=== PATIENT | male | born 1990 | race Caucasian/White ===

== ENCOUNTER 2018-05-21 12:18 | Outpatient (CLI) | payer OTHER | END 2018-05-21 12:19 | disposition home or self-care (01) | LOC: C.PAT 12:18 | DX: N20.0 Calculus of kidney (principal) ==

== ENCOUNTER 2018-05-26 11:34 | Day surgery (SDC) | payer OTHER ==
[2018-05-21 12:47] VITALS: BMI 28.8
[2018-05-26] MEDS ORDERED: Ciprofloxacin 400mg/200ml D5W 400 MG/200 ML BAG IVPB ONE (13:38)
[2018-05-26] MEDS ORDERED: Lidocaine 2% Jelly (Uro-Jet) ONE (13:39)
[2018-05-26] MEDS ORDERED: Gentamicin 80 mg in 0.9% NS 80 MG/100 ML BAG IVPB ONE ×2 (13:39→13:54)
[2018-05-26] MEDS ORDERED: Iohexol 240 (50 ml) ONE (13:44)
[2018-05-26] MEDS ORDERED: Propofol 10 mg/ml Inj (20 ML) ONE ×2 (13:46→13:59)
[2018-05-26] MEDS ORDERED: Lactated Ringer's 1,000 ML IV SCH (14:15)
--- NOTE | 2018-05-26 14:18 | PCM.SURG1 ---
Surgeon's Initial Post Op Note - Surgeon's Notes Surgeon: Bam Supervisor Agricultural Education: Julianne Type of Anesthesia: General LMA Anesthesia Administered By: Staff Pre-Operative Diagnosis: Right Hydronephrosis Operative Findings: Right ureteral calculi @ level of lower ureter and mid ureter junction Post-Operative Diagnosis: Durand secondery to ureteral calculi Operation Performed: Cysto and insertion of jj stent Specimen/Specimens Removed: NA Estimated Blood Loss: EBL {In ML}: 0 Blood Products Given: N/A Drains Used: No Drains Post-Op Condition: Good Date of Surgery/Procedure: 05/26/18 Time of Surgery/Procedure: 14:18
[2018-05-26 14:29] VITALS: TEMP 97.1
[2018-05-26 15:29] VITALS: BP 123/71; PULSE 69; RESP 12; O2SAT 98
--- NOTE | 2018-05-26 19:12 | RAD ---
Date of service: 05/26/2018 PROCEDURE: Intraoperative Fluoroscopy. HISTORY: RT.URETERAL STONE FINDINGS: Fluoroscopic assistance was provided. Fluoroscopy time = 45.6 sec. Radiation dose = 0.46471 mGy . Please refer to the operative report from VERONICA Rosen.
--- NOTE | 2018-05-27 10:41 | RAD ---
Date of service: 05/26/2018 HISTORY: RT URETERAL STONE COMPARISON: None available. FINDINGS: BOWEL: Minimal stool is present in the splenic and ascending colon. No bowel obstruction suggested BONES: Normal. OTHER FINDINGS: A approximately 2 to 3 mm hyperdensity projects over the right retroperitoneal fat approximately 3 cm lateral to the superior SI joint line and this is just inferior to the right L4 transverse process. This hyperdensity is too far lateral to be considered for atypical right ureteral calculus. A 1 mm calcification projects not only over the stool of the hepatic flexure but also the inferior pole of the right kidney a right renal calculus here is a consideration. There also may be a 1 to 2 mm left upper renal pole calcification or finding relating to stool contents. IMPRESSION: No typical right ureteral calculi appreciated. Tiny hyperdensities possible calcifications are as detailed above. Correlation recommended with any outside CT abdomen exams demonstrating the presence of position of any known right sided urolithiasis.
--- NOTE | 2018-05-27 19:51 | OP ---
PROCEDURE DATE: 05/26/2018 PREOPERATIVE DIAGNOSIS: Right renal colic and ureteral calculi. POSTOPERATIVE DIAGNOSIS: Right hydronephrosis secondary to ureteral calculi at the junction of the mid and lower third of the ureter causing hydronephrosis. DESCRIPTION OF PROCEDURE: The patient was asked to sign a detailed informed consent, a full explanation of all risks and limitations of this procedure were given to the patient, he agreed and signed the consent. He was brought into the room and a time-out was taken according to the rules and regulations of [facility]. He received prophylactic antibiotics and was cystoscoped with a #21 Storz panendoscope. The right ureteral orifice was cannulized with a 0.038 guidewire after a side check was done and the guidewire was passed up into the renal pelvis. There appeared to be a small stone in the lower ureter. It was likely to insert a double J stent, the level of the stone appears to be at the iliac crossing. The stone was bypassed by passing a 6-[place] variable length stent. The patient tolerated this well. He will be scheduled for ESWL at the next available day. He was advised postoperatively all the findings and need for further therapy and stent removal. Santosh Kuhn MD
== END 2018-05-26 16:35 | disposition home or self-care (01) ==
LOC: C.SDS 11:34
PROVIDERS: ATTEND Urology
DX: N20.0 Calculus of kidney (principal); N13.2 Hydronephrosis with renal and ureteral calculous obstruction
CPT/HCPCS: 52332; 74018; C1725; C1769; J0744; J1580

== ENCOUNTER 2018-06-16 11:29 | Day surgery (SDC) | payer OTHER ==
[2018-05-21 12:47] VITALS: BMI 28.8
[2018-06-16] MEDS ORDERED: Gentamicin 160 MG in Sodium Chloride 0.9% 100 ML IVPB ONE (12:21)
[2018-06-16 12:37] VITALS: O2SAT 98
[2018-06-16] MEDS ORDERED: Lidocaine 2% Jelly (Uro-Jet) ONE (14:47)
[2018-06-16] MEDS ORDERED: Ciprofloxacin 400mg/200ml D5W 400 MG/200 ML BAG IVPB ONE (14:47)
[2018-06-16] MEDS ORDERED: Propofol 10 mg/ml Inj (20 ML) ONE (14:48)
[2018-06-16] MEDS ORDERED: Midazolam 2 MG/2 ML VIAL ONE (14:48)
--- NOTE | 2018-06-16 15:16 | PCM.SURG1 ---
Surgeon's Initial Post Op Note - Surgeon's Notes Surgeon: Bam Sfdc Developer: ARELY Type of Anesthesia: General LMA Anesthesia Administered By: staff Pre-Operative Diagnosis: Retained stent Operative Findings: stent/no stones Post-Operative Diagnosis: same Operation Performed: Cysto removal of stent Specimen/Specimens Removed: stent Estimated Blood Loss: EBL {In ML}: 0 Blood Products Given: N/A Post-Op Condition: Good Date of Surgery/Procedure: 06/16/18 Time of Surgery/Procedure: 15:15
[2018-06-16 16:19] VITALS: TEMP 97
[2018-06-16 17:48] VITALS: BP 115/58; PULSE 72; RESP 16
--- NOTE | 2018-06-17 02:00 | OP ---
PROCEDURE DATE: 06/16/2018 PREOPERATIVE DIAGNOSIS: Indwelling ureteral stent. POSTOPERATIVE DIAGNOSIS: Indwelling ureteral stent. PROCEDURE: Cystoscopy and removal of stent. FINDINGS: Double-J stent with good position with no evidence of stones and the procedure is as follows. The patient was asked to sign a detailed informed consent after full explanation of the risk and complications of this procedure. He was brought into the room and a time-out was taken according to rules and regulations of [facility]. Prophylactic antibiotics were administered and he was draped and prepped in the usual manner. After anesthesia was achieved, he was cystoscoped with #21 Storz panendoscope. The pendulous membranous and prostatic urethra were within normal limits. The bladder was entered. A stent was seen protruding from the urethral orifice, which was grasped and removed. There were no other foreign bodies within the bladder. The patient tolerated this procedure well. He was sent to recovery room in good condition. He was given instructions regarding postoperative care, postoperative antibiotics, and the need to follow up in our office in 1 month by appointment. Santosh Kuhn MD
--- NOTE | 2018-06-17 13:37 | RAD ---
COMPARISON: None PROCEDURE: HISTORY: As above TECHNIQUE: Total fluoroscopic time utilized during the procedure: 2.5 seconds ; 0.16569 mGy cm 2 FINDINGS: Submitted images from the current procedure: 3 Please refer to the physician's notes performing the procedure. IMPRESSION: Less than 1 hour fluoroscopic time utilized during performance of the procedure
== END 2018-06-16 17:49 | disposition home or self-care (01) ==
LOC: C.SDS 11:29
PROVIDERS: ATTEND Urology
DX: Z46.6 Encounter for fitting and adjustment of urinary device (principal)
CPT/HCPCS: 52310; J0744; J1580